=== PATIENT | male | born 1960 | race Caucasian/White ===

== ENCOUNTER → 2017-06-26 | Outpatient (CLI) | payer OTHER ==
[2017-06-26 13:29] LABS: HEMOGLOBIN A1C 6.1 % (4.5-5.6)
[2017-06-26 14:17] LABS: ALT/SGPT 35 U/L (12-78); AST/SGOT 18 U/L (15-37); BLOOD UREA NITROGEN 14 mg/dl (7-18); CALCIUM 9.6 mg/dl (8.5-10.1); CARBON DIOXIDE 25 mmol/L (21-32); CREATININE 0.75 mg/dl (0.60-1.40); GLUCOSE 104 mg/dl (70-99); POTASSIUM 4.2 mmol/L (3.5-5.1); SODIUM 137 mmol/L (136-145)
[2017-06-26 14:27] LABS: CHOLESTEROL 152 mg/dl (0-200); LDL CHOLESTEROL (DIRECT) 88 mg/dl
[2017-06-29 02:26] LABS: ANA SCREEN TC 249X POSITIVE (NEGATIVE); ANTI-SS-A <1.0 NEG AI (<1.0 NEG); ANTI-SS-B <1.0 NEG AI (<1.0 NEG); ANTICARDIOLIPID AB IGA <11 APL (< = 11); COMPLEMENT C3 TC 44859W 154 MG/DL (90-180); COMPLEMENT C4 TC 44982E 22 MG/DL (16-47); MICROSOMAL AB <1 IU/ML (<9)
== END | disposition home or self-care (01) ==
LOC: C.LABMFLN 10:53
PROVIDERS: ATTEND Family Medicine
DX: Z00.00 Encounter for general adult medical examination without abnormal findings (principal); I10 Essential (primary) hypertension; E78.01 Familial hypercholesterolemia; I25.10 Atherosclerotic heart disease of native coronary artery without angina pectoris; E78.5 Hyperlipidemia, unspecified; R76.8 Other specified abnormal immunological findings in serum; G62.9 Polyneuropathy, unspecified; R53.83 Other fatigue; R35.8 Other polyuria

== ENCOUNTER → 2017-07-20 | Outpatient (CLI) | payer OTHER | END | disposition home or self-care (01) | LOC: C.LABMFLN 08:54 | PROVIDERS: ATTEND Internal Medicine Rheumatology | DX: G62.9 Polyneuropathy, unspecified (principal); R76.8 Other specified abnormal immunological findings in serum; M35.1 Other overlap syndromes ==

== ENCOUNTER 2017-08-19 19:09 | Emergency (ER) | payer OTHER ==
[~2017-08-19] VITALS: Ht 182.9 cm; Wt 119.7 kg
[2017-08-19 19:13] VITALS: TEMP 36.5; Ht 182.9 cm; Wt 119.7 kg
[2017-08-19] MEDS ORDERED: SODIUM CHLORIDE 0.9% 1000ML 1,000 ML IV STA (19:17)
[2017-08-19] MEDS ORDERED: HYDROmorphone INJ 1 MG/ML SYR IV STA ×5 (19:17→23:58)
[2017-08-19 19:18] VITALS: O2SAT 96
[2017-08-19 19:30] LABS: BASO % 0.1 %; BASO ABS # 0.01 K/uL (0-0.2); EOS % 0.8 %; EOS ABS # 0.08 K/uL (0-0.5); HEMATOCRIT 41.8 % (42-52); HEMOGLOBIN 14.5 g/dL (14.0-18.0); IG# 0.03 K/uL (0.00-0.02); LYMPH % 14.5 %; MEAN CELL VOLUME 85.7 fL (80-100); MEAN CORPUSCULAR HEMOGLOBIN 29.7 pg (25-34); MEAN CORPUSCULAR HGB CONC 34.7 g/dl (32-36); MEAN PLATELET VOLUME 9.4 fL (7.4-10.4); MONO % 7.9 %; MONO ABS # 0.82 K/uL (0.11-0.59); NEUT % 76.4 %; NEUT ABS # 7.88 K/uL (1.4-6.5); PLATELET COUNT 223 K/uL (130-400); RED CELL DISTRIBUTION WIDTH CV 14.8 % (11.5-14.5); RED CELL DISTRIBUTION WIDTH SD 46.3 fL (36.4-46.3); WHITE BLOOD COUNT 10.32 K/uL (4.8-10.8)
[2017-08-19 19:40] LABS: INR 0.9 (0.9-1.1)
[2017-08-19 19:48] LABS: ALBUMIN 3.7 gm/dl (3.4-5.0); CALCIUM 8.6 mg/dl (8.5-10.1); CREATININE 0.78 mg/dl (0.60-1.40)
[2017-08-19 19:50] LABS: TOTAL PROTEIN 7.2 gm/dl (6.4-8.2)
[2017-08-19] MEDS ORDERED: SULF-302 PO (20:04)
[2017-08-19] MEDS ORDERED: PRD/25 PO (20:04)
[2017-08-19] MEDS ORDERED: LANS15CA24 PO (20:04)
[2017-08-19] MEDS ORDERED: FOLI1TAB8 PO (20:04)
[2017-08-19] MEDS ORDERED: METH2.5T PO (20:04)
[2017-08-19] MEDS ORDERED: TPRSR25 PO (20:04)
[2017-08-19] MEDS ORDERED: ATOR10TA82 PO (20:04)
--- NOTE | 2017-08-19 20:31 | DIAGNOSTIC IMAGING REPORT ---
ABD/PELVIS WITHOUT FOR STONE HISTORY: 57 years-old Male R flank pain acute right-sided flank pain COMPARISON: None available TECHNIQUE: Multiple axial CT images of the abdomen and pelvis were obtained without the use of IV contrast. A dose lowering technique was used consistent with the principals of RENETTA. FINDINGS: Mild subsegmental bibasilar atelectasis. No pneumatosis or pneumoperitoneum identified. Imaged inferior cardiac chambers are mildly enlarged. Coronary arterial calcifications noted. Evaluation of the solid abdominal organs is limited without the use of IV contrast. Liver, pancreas and adrenal glands are within normal limits. Gallbladder is mildly contracted. Spleen is mildly enlarged, 14 cm. Mild nonspecific bilateral perinephric stranding. No renal calculi or obstructive uropathy. Ureters and bladder are unremarkable. Prostate is mildly enlarged. Small fat filled bilateral inguinal hernias. Moderate atherosclerosis of the aorta without aneurysm. Retroaortic left renal vein. No bulky adenopathy. There is no bowel obstruction or focal bowel wall thickening identified. Mild colonic diverticulosis without diverticulitis. Postoperative changes from prior ventral abdominal wall herniorrhaphy with mild diastases recti. There is thinning of the abdominal wall musculature. The appendix is not seen and may be surgically absent. No mesenteric inflammatory changes or ascites. Bones appear intact. Prior right-sided hemilaminectomy at L4 and L5. Moderate intervertebral disc space narrowing at the L4-L5 and L5-S1 levels. IMPRESSION: 1. No acute intra-abdominal or intrapelvic abnormality identified, specifically no renal calculi or obstructive uropathy. 2. Mild colonic diverticulosis without diverticulitis. 3. Splenomegaly. 4. Prior ventral abdominal wall herniorrhaphy with diastases recti. 5. Additional findings as above. The above report was generated using voice recognition software. It may contain grammatical, syntax or spelling errors. Electronically signed by: Stuart Warner M.D. 08/19/2017 8:30 PM Dictated Date/Time: 08/19/2017 8:23 PM
[2017-08-19] MEDS ORDERED: OPTIRAY 320 IV PRN (20:45)
[2017-08-19] MEDS ORDERED: ONDANSETRON INJ 2 MG/ML 2 ML VIAL IV STA (20:48)
[2017-08-19 21:02] LABS: CKMB 7.6 ng/ml (0.5-3.6)
--- NOTE | 2017-08-19 21:14 | EMERGENCY ROOM VISIT NOTE ---
History First contact with patient: 19:09 Chief Complaint: FLANK PAIN Stated Complaint: RIGHT FLANK PAIN History of Present Illness The patient is a 57 year old male who presents to the Emergency Room via ambulance with complaints of "right flank pain". The patient states that he was recently diagnosed vasculitis and has been on high-dose steroids. This morning he woke up with excruciating and sudden onset right flank pain rated as a 10/10 and described as someone squeezing his right kidney. He points to the inferior right flank as a location of pain. There is been no trauma or injury. No chest pain or shortness of breath. No history of kidney stone. He notes that in route he received 200 mcg of fentanyl, and 4 mg of Zofran. This was with minimal relief. Review of Systems A complete 10-point Review of Systems was discussed with the patient, with pertinent positives and negatives listed in the History of Present Illness. All remaining Review of Systems questions can be considered negative unless otherwise specified. Past Medical/Surgical History Vasculitis Family History No pertinent. Social History Smoking Status: Former Smoker Patient lives locally. Current/Historical Medications Scheduled Atorvastatin (Lipitor), 10 MG PO DAILY Folic Acid (Folvite), 1 MG PO DAILY Lansoprazole (Prevacid 24HR), 15 MG PO DAILY Methotrexate (Methotrexate), 2.5 MG PO WK Metoprolol Succinate (Metoprolol Succinate ER), 12.5 MG PO DAILY Prednisone (Prednisone), 2.5 MG PO TID Sulfamethoxazole-Trimethoprim (Smz-Tmp Ds), 1 TAB PO QAM Physical Exam Vital Signs Date Time Temp Pulse Resp B/P (MAP) Pulse Ox O2 Delivery O2 Flow Rate FiO2 08/19/17 22:47 57 16 118/63 94 Nasal Cannula 08/19/17 21:11 56 16 112/69 98 Nasal Cannula 2.0 08/19/17 20:21 53 16 104/68 97 Room Air 08/19/17 19:18 96 Room Air 08/19/17 19:15 70 08/19/17 19:13 36.5 74 18 137/74 96 Room Air Physical Exam VITAL SIGNS - Vital signs and nursing notes were reviewed. Stable. GENERAL -57-year-old male appearing his stated age who is in no acute distress but does appear to be in pain. Communicates well with provider and answers questions appropriately. SKIN - Without rashes. No meningeal or petechial rash. HEAD - NC/AT. EYES - PERRL with EOMI bilaterally. Sclera anicteric. EARS - No deformities of external structures noted on gross examination bilaterally. External auditory canals without discharge or otorrhea. Tympanic membranes pearly pike without retraction or bulging. No fluid or purulent material visualized behind the TM. Handle of malleus, umbo, cone of light, pars tensa/flaccid all easily visualized. NOSE - Midline and without cyanosis. No epistaxis or purulent drainage noted. MOUTH/OROPHARYNX - Without perioral cyanosis. Buccal mucosa pink and moist and without leukoplakia. Tongue midline with equal elevation of palate bilaterally. No tonsillar hypertrophy, erythema, or exudates noted. There dentition noted. NECK - Neck with FROM. Supple to palpation. No lymphadenopathy noted. No nuchal rigidity. LUNGS - Chest wall symmetric without accessory muscle use, intercostals retractions, or central cyanosis. Normal vesicular breath sounds CTA B/L. No wheezes, rales, or rhonchi appreciated. CARDIAC - RRR with S1/S2. No murmur, rubs, or gallops appreciated. ABDOMEN - Abdominal contour normal without pulsations or visible masses. BS normoactive all four quadrants. No tenderness, palpable masses, hepatosplenomegaly, or ascites noted. No CVA tenderness. EXTREMITIES - No clubbing or peripheral cyanosis. No pretibial edema present. + 5/5 strength noted in UE/LE bilaterally. NEUROLOGIC - Cranial nerves II through XII grossly intact. Sensory intact to light touch throughout. PSYCH - A&O, and cooperates fully with examiner. Pt is very pleasant and interacts well with examiner. Medical Decision & Procedures ER Provider Diagnostic Interpretation: ABD/PELVIS WITHOUT FOR STONE HISTORY: 57 years-old Male R flank pain acute right-sided flank pain COMPARISON: None available TECHNIQUE: Multiple axial CT images of the abdomen and pelvis were obtained without the use of IV contrast. A dose lowering technique was used consistent with the principals of RENETTA. FINDINGS: Mild subsegmental bibasilar atelectasis. No pneumatosis or pneumoperitoneum identified. Imaged inferior cardiac chambers are mildly enlarged. Coronary arterial calcifications noted. Evaluation of the solid abdominal organs is limited without the use of IV contrast. Liver, pancreas and adrenal glands are within normal limits. Gallbladder is mildly contracted. Spleen is mildly enlarged, 14 cm. Mild nonspecific bilateral perinephric stranding. No renal calculi or obstructive uropathy. Ureters and bladder are unremarkable. Prostate is mildly enlarged. Small fat filled bilateral inguinal hernias. Moderate atherosclerosis of the aorta without aneurysm. Retroaortic left renal vein. No bulky adenopathy. There is no bowel obstruction or focal bowel wall thickening identified. Mild colonic diverticulosis without diverticulitis. Postoperative changes from prior ventral abdominal wall herniorrhaphy with mild diastases recti. There is thinning of the abdominal wall musculature. The appendix is not seen and may be surgically absent. No mesenteric inflammatory changes or ascites. Bones appear intact. Prior right-sided hemilaminectomy at L4 and L5. Moderate intervertebral disc space narrowing at the L4-L5 and L5-S1 levels. IMPRESSION: 1. No acute intra-abdominal or intrapelvic abnormality identified, specifically no renal calculi or obstructive uropathy. 2. Mild colonic diverticulosis without diverticulitis. 3. Splenomegaly. 4. Prior ventral abdominal wall herniorrhaphy with diastases recti. 5. Additional findings as above. The above report was generated using voice recognition software. It may contain grammatical, syntax or spelling errors. Electronically signed by: Stuart Warner M.D. 08/19/2017 8:30 PM Dictated Date/Time: 08/19/2017 8:23 PM [~ rep ct add3]] ANGIO ABD/PELVIS WITH CONTRAST CLINICAL HISTORY: 57 years-old Male presents with acute right flank and abdominal pain. Concern for vascular etiology. COMPARISON STUDY: CT abdomen and pelvis of same day without contrast TECHNIQUE: Following the IV administration of 110 cc of Optiray 320, CT angiogram of the abdomen and pelvis was performed from the lung bases the proximal femora. Images are reviewed in the axial, sagittal, and coronal planes. 3-D MIPS images are created and assessed. Oh measurements were obtained according to NASCET criteria. IV contrast was administered without complication. A dose lowering technique was utilized adhering to the principles of ALARA. CT DOSE: 1620.60 mGy.cm FINDINGS: CTA: Imaged inferior cardiac chambers are mildly enlarged. Coronary arterial calcifications noted. The imaged opacified pulmonary arteries appear unremarkable. Abdominal aorta is normal in course and caliber with moderate mixed plaquing. No aneurysm or dissection. Moderate mixed atheromatous and atherosclerotic plaquing extends into the iliac and imaged femoral arteries which are widely patent. CT ABDOMEN/PELVIS: Mild subsegmental bibasilar atelectasis. No pneumatosis or pneumoperitoneum identified. The celiac trunk, superior and inferior mesenteric arteries are widely patent. Bilateral renal arteries are also widely patent. Accessory renal artery of the superior pole left kidney. No dissection, high-grade stenosis or proximal branch occlusion identified. Liver, pancreas and adrenal glands are within normal limits. Gallbladder is mildly contracted. Spleen is mildly enlarged, 14 cm. Mild nonspecific bilateral perinephric stranding. No renal calculi or obstructive uropathy. Ureters and bladder are unremarkable. Prostate is mildly enlarged. Small fat filled bilateral inguinal hernias. Moderate atherosclerosis of the aorta without aneurysm. Retroaortic left renal vein. No bulky adenopathy. There is no bowel obstruction or focal bowel wall thickening identified. Mild colonic diverticulosis without diverticulitis. Postoperative changes from prior ventral abdominal wall herniorrhaphy with mild diastases recti. There is thinning of the abdominal wall musculature. The appendix is not seen and may be surgically absent. No mesenteric inflammatory changes or ascites. Bones appear intact. Prior right-sided hemilaminectomy at L4 and L5. Moderate intervertebral disc space narrowing at the L4-L5 and L5-S1 levels. IMPRESSION: 1. Moderate mixed atheromatous and atherosclerotic plaquing of the aorta, iliac and femoral arteries without high-grade stenosis, proximal branch occlusion, aneurysm or dissection. Mesenteric vessels are widely patent. 2. Mild colonic diverticulosis without diverticulitis. 3. Splenomegaly. 4. Additional findings as above. The above report was generated using voice recognition software. It may contain grammatical, syntax or spelling errors. Electronically signed by: Stuart Warner M.D. 08/19/2017 10:43 PM Dictated Date/Time: 08/19/2017 10:31 PM Laboratory Results 08/19/17 19:15 Red Blood Count 4.88, Mean Corpuscular Volume 85.7, Mean Corpuscular Hemoglobin 29.7, Mean Corpuscular Hemoglobin Concent 34.7, Mean Platelet Volume 9.4, Neutrophils (%) (Auto) 76.4, Lymphocytes (%) (Auto) 14.5, Monocytes (%) (Auto) 7.9, Eosinophils (%) (Auto) 0.8, Basophils (%) (Auto) 0.1, Neutrophils # (Auto) 7.88, Lymphocytes # (Auto) 1.50, Monocytes # (Auto) 0.82, Eosinophils # (Auto) 0.08, Basophils # (Auto) 0.01 08/19/17 19:15 Test 08/19/17 19:15 08/19/17 21:00 White Blood Count 10.32 K/uL (4.8-10.8) Red Blood Count 4.88 M/uL (4.7-6.1) Hemoglobin 14.5 g/dL (14.0-18.0) Hematocrit 41.8 % (42-52) Mean Corpuscular Volume 85.7 fL (80-100) Mean Corpuscular Hemoglobin 29.7 pg (25-34) Mean Corpuscular Hemoglobin Concent 34.7 g/dl (32-36) Platelet Count 223 K/uL (130-400) Mean Platelet Volume 9.4 fL (7.4-10.4) Neutrophils (%) (Auto) 76.4 % Lymphocytes (%) (Auto) 14.5 % Monocytes (%) (Auto) 7.9 % Eosinophils (%) (Auto) 0.8 % Basophils (%) (Auto) 0.1 % Neutrophils # (Auto) 7.88 K/uL (1.4-6.5) Lymphocytes # (Auto) 1.50 K/uL (1.2-3.4) Monocytes # (Auto) 0.82 K/uL (0.11-0.59) Eosinophils # (Auto) 0.08 K/uL (0-0.5) Basophils # (Auto) 0.01 K/uL (0-0.2) RDW Standard Deviation 46.3 fL (36.4-46.3) RDW Coefficient of Variation 14.8 % (11.5-14.5) Immature Granulocyte % (Auto) 0.3 % Immature Granulocyte # (Auto) 0.03 K/uL (0.00-0.02) Erythrocyte Sedimentation Rate 11 mm/hr (0-14) Prothrombin Time 9.8 SECONDS (9.0-12.0) Prothromb Time International Ratio 0.9 (0.9-1.1) Activated Partial Thromboplast Time 23.0 SECONDS (21.0-31.0) Partial Thromboplastin Ratio 0.9 Anion Gap 4.0 mmol/L (3-11) Est Creatinine Clear Calc Drug Dose 143.0 ml/min Estimated GFR () 117.8 Estimated GFR (Non- 101.6 BUN/Creatinine Ratio 21.2 (10-20) Calcium Level 8.6 mg/dl (8.5-10.1) Magnesium Level 2.3 mg/dl (1.8-2.4) Total Bilirubin 1.0 mg/dl (0.2-1) Aspartate Amino Transf (AST/SGOT) 24 U/L (15-37) Alanine Aminotransferase (ALT/SGPT) 43 U/L (12-78) Alkaline Phosphatase 79 U/L (45-117) Total Creatine Kinase 181 U/L (39-308) Creatine Kinase MB 7.6 ng/ml (0.5-3.6) Creatine Kinase MB Ratio 4.2 (0-3.0) Troponin I < 0.015 ng/ml (0-0.045) C-Reactive Protein < 0.29 mg/dl (0-0.29) Total Protein 7.2 gm/dl (6.4-8.2) Albumin 3.7 gm/dl (3.4-5.0) Globulin 3.5 gm/dl (2.5-4.0) Albumin/Globulin Ratio 1.1 (0.9-2) Urine Color YELLOW Urine Appearance CLEAR (CLEAR) Urine pH 5.5 (4.5-7.5) Urine Specific [place] 1.022 (1.000-1.030) Urine Protein NEG (NEG) Urine Glucose (UA) NEG (NEG) Urine Ketones NEG (NEG) Urine Occult Blood NEG (NEG) Urine Nitrite NEG (NEG) Urine Bilirubin NEG (NEG) Urine Urobilinogen NEG (NEG) Urine Leukocyte Esterase NEG (NEG) Medications Administered Medications (Trade) Dose Ordered Sig/Bc Route Start Time Stop Time Status Last Admin Dose Admin Sodium Chloride 1,000 ml @ 999 mls/hr Q1H1M STAT IV 08/19/17 19:17 08/19/17 20:17 DC 08/19/17 19:22 999 MLS/HR Hydromorphone HCl (Dilaudid Inj) 1 mg NOW STAT IV 08/19/17 19:17 08/19/17 19:19 DC 08/19/17 19:38 1 MG Hydromorphone HCl (Dilaudid Inj) 1 mg NOW STAT IV 08/19/17 20:24 08/19/17 20:25 DC 08/19/17 20:30 1 MG Ondansetron HCl (Zofran Inj) 4 mg NOW STAT IV 08/19/17 20:48 08/19/17 20:50 DC 08/19/17 21:10 4 MG Hydromorphone HCl (Dilaudid Inj) 1 mg NOW STAT IV 08/19/17 20:48 08/19/17 20:50 DC 08/19/17 21:10 1 MG Hydromorphone HCl (Dilaudid Inj) 1 mg NOW STAT IV 08/19/17 22:22 08/19/17 22:24 DC 08/19/17 22:47 1 MG Metoclopramide HCl (Reglan Inj) 10 mg NOW STAT IV 08/19/17 22:22 08/19/17 22:24 DC 08/19/17 22:46 10 MG Medical Decision Patient was seen and evaluated as above in room B5. Review was performed of nursing notes and vital signs. After obtaining a thorough history and physical examination the above work up was performed. He presents to us today via ambulance with exquisite right-sided flank pain not reproduced on exam. He is on high-dose steroids for his recent diagnosis of vasculitis. In route he did receive a large amount of fentanyl with persistence of his pain. No other complaints were elicited from the patient. He did receive a CT scan of the abdomen and pelvis without for stone. This was negative for stone. Because the patient's persistent of pain despite 2 mg of Dilaudid IV here in the emergency department I did elect to obtain a CTA of his abdomen and pelvis to evaluate for any potential vascular occlusion that was not identified previously. CTA does not reveal any emergent process. CBC reveals no concerning leukocytosis or anemia. ESR is negative. Coags negative. EKG reveals sinus bradycardia, no evidence of TX or PE. Kidney function is excellent. No liver abnormality. CK-MB is elevated. CRP negative. Troponin negative. Urine negative. He has received large amounts of Dilaudid here as well as pain meds prior to coming here. I do not suspect drug-seeking behavior. The concern is that with his underlying past medical history there could be other causes of this which should be further evaluated. I did discuss the case with the attending physician and subsequently the hospitalist. Please refer to for the documentation regarding his stay. In the evaluation and treatment of this patient the following differential diagnoses were entertained: TX, PE, renal artery stenosis, organ failure, vasculitis, diverticulitis, lumbar strain, fracture, dislocation, appendicitis, among others. Impression Primary Impression: Right flank pain Additional Impression: Intractable pain Departure Information Dispostion Admitted as an inpatient Condition FAIR Referrals Doyle Siegel M.D. (PCP) Patient Instructions [facility] Problem Qualifiers
--- NOTE | 2017-08-19 21:15 | EMERGENCY ROOM VISIT NOTE ---
ED Visit Note First contact with patient: 19:09 I have seen and examined this patient with Natalio Celis and generally agree with the treatment plan as discussed. Current/Historical Medications Scheduled Atorvastatin (Lipitor), 10 MG PO DAILY Folic Acid (Folvite), 1 MG PO DAILY Lansoprazole (Prevacid 24HR), 15 MG PO DAILY Methotrexate (Methotrexate), 2.5 MG PO WK Metoprolol Succinate (Metoprolol Succinate ER), 12.5 MG PO DAILY Prednisone (Prednisone), 2.5 MG PO TID Sulfamethoxazole-Trimethoprim (Smz-Tmp Ds), 1 TAB PO QAM Allergies Coded Allergies: Penicillins (Verified Allergy, Severe, ANAPHYLAXIS, 08/19/17) Morphine (Verified Allergy, Intermediate, Hives, swelling, 08/19/17) Vital Signs Date Time Temp Pulse Resp B/P (MAP) Pulse Ox O2 Delivery O2 Flow Rate FiO2 08/19/17 21:11 56 16 112/69 98 Nasal Cannula 2.0 08/19/17 20:21 53 16 104/68 97 Room Air 08/19/17 19:18 96 Room Air 08/19/17 19:15 70 08/19/17 19:13 36.5 74 18 137/74 96 Room Air Laboratory Results 08/19/17 19:15 Red Blood Count 4.88, Mean Corpuscular Volume 85.7, Mean Corpuscular Hemoglobin 29.7, Mean Corpuscular Hemoglobin Concent 34.7, Mean Platelet Volume 9.4, Neutrophils (%) (Auto) 76.4, Lymphocytes (%) (Auto) 14.5, Monocytes (%) (Auto) 7.9, Eosinophils (%) (Auto) 0.8, Basophils (%) (Auto) 0.1, Neutrophils # (Auto) 7.88, Lymphocytes # (Auto) 1.50, Monocytes # (Auto) 0.82, Eosinophils # (Auto) 0.08, Basophils # (Auto) 0.01 08/19/17 19:15 Test 08/19/17 19:15 08/19/17 20:30 White Blood Count 10.32 K/uL (4.8-10.8) Red Blood Count 4.88 M/uL (4.7-6.1) Hemoglobin 14.5 g/dL (14.0-18.0) Hematocrit 41.8 % (42-52) Mean Corpuscular Volume 85.7 fL (80-100) Mean Corpuscular Hemoglobin 29.7 pg (25-34) Mean Corpuscular Hemoglobin Concent 34.7 g/dl (32-36) Platelet Count 223 K/uL (130-400) Mean Platelet Volume 9.4 fL (7.4-10.4) Neutrophils (%) (Auto) 76.4 % Lymphocytes (%) (Auto) 14.5 % Monocytes (%) (Auto) 7.9 % Eosinophils (%) (Auto) 0.8 % Basophils (%) (Auto) 0.1 % Neutrophils # (Auto) 7.88 K/uL (1.4-6.5) Lymphocytes # (Auto) 1.50 K/uL (1.2-3.4) Monocytes # (Auto) 0.82 K/uL (0.11-0.59) Eosinophils # (Auto) 0.08 K/uL (0-0.5) Basophils # (Auto) 0.01 K/uL (0-0.2) RDW Standard Deviation 46.3 fL (36.4-46.3) RDW Coefficient of Variation 14.8 % (11.5-14.5) Immature Granulocyte % (Auto) 0.3 % Immature Granulocyte # (Auto) 0.03 K/uL (0.00-0.02) Prothrombin Time 9.8 SECONDS (9.0-12.0) Prothromb Time International Ratio 0.9 (0.9-1.1) Activated Partial Thromboplast Time 23.0 SECONDS (21.0-31.0) Partial Thromboplastin Ratio 0.9 Anion Gap 4.0 mmol/L (3-11) Est Creatinine Clear Calc Drug Dose 143.0 ml/min Estimated GFR () 117.8 Estimated GFR (Non- 101.6 BUN/Creatinine Ratio 21.2 (10-20) Calcium Level 8.6 mg/dl (8.5-10.1) Magnesium Level 2.3 mg/dl (1.8-2.4) Total Bilirubin 1.0 mg/dl (0.2-1) Aspartate Amino Transf (AST/SGOT) 24 U/L (15-37) Alanine Aminotransferase (ALT/SGPT) 43 U/L (12-78) Alkaline Phosphatase 79 U/L (45-117) Total Creatine Kinase 181 U/L (39-308) Creatine Kinase MB 7.6 ng/ml (0.5-3.6) Creatine Kinase MB Ratio 4.2 (0-3.0) Troponin I < 0.015 ng/ml (0-0.045) Total Protein 7.2 gm/dl (6.4-8.2) Albumin 3.7 gm/dl (3.4-5.0) Globulin 3.5 gm/dl (2.5-4.0) Albumin/Globulin Ratio 1.1 (0.9-2) Medications Administered Medications (Trade) Dose Ordered Sig/Bc Route Start Time Stop Time Status Last Admin Dose Admin Sodium Chloride 1,000 ml @ 999 mls/hr Q1H1M STAT IV 08/19/17 19:17 08/19/17 20:17 DC 08/19/17 19:22 999 MLS/HR Hydromorphone HCl (Dilaudid Inj) 1 mg NOW STAT IV 08/19/17 19:17 08/19/17 19:19 DC 08/19/17 19:38 1 MG Hydromorphone HCl (Dilaudid Inj) 1 mg NOW STAT IV 08/19/17 20:24 08/19/17 20:25 DC 08/19/17 20:30 1 MG Ondansetron HCl (Zofran Inj) 4 mg NOW STAT IV 08/19/17 20:48 08/19/17 20:50 DC 08/19/17 21:10 4 MG Hydromorphone HCl (Dilaudid Inj) 1 mg NOW STAT IV 08/19/17 20:48 08/19/17 20:50 DC 08/19/17 21:10 1 MG Departure Information Impression Primary Impression: Right flank pain Referrals Dolye Siegel M.D. (PCP) Patient Instructions [facility]
[2017-08-19] MEDS ORDERED: METOCLOPRAMIDE HCL INJ 5 MG/ML 2 ML VIAL IV STA (22:22)
--- NOTE | 2017-08-19 22:44 | DIAGNOSTIC IMAGING REPORT ---
ANGIO ABD/PELVIS WITH CONTRAST CLINICAL HISTORY: 57 years-old Male presents with acute right flank and abdominal pain. Concern for vascular etiology. COMPARISON STUDY: CT abdomen and pelvis of same day without contrast TECHNIQUE: Following the IV administration of 110 cc of Optiray 320, CT angiogram of the abdomen and pelvis was performed from the lung bases the proximal femora. Images are reviewed in the axial, sagittal, and coronal planes. 3-D MIPS images are created and assessed. Oh measurements were obtained according to NASCET criteria. IV contrast was administered without complication. A dose lowering technique was utilized adhering to the principles of ALARA. CT DOSE: 1620.60 mGy.cm FINDINGS: CTA: Imaged inferior cardiac chambers are mildly enlarged. Coronary arterial calcifications noted. The imaged opacified pulmonary arteries appear unremarkable. Abdominal aorta is normal in course and caliber with moderate mixed plaquing. No aneurysm or dissection. Moderate mixed atheromatous and atherosclerotic plaquing extends into the iliac and imaged femoral arteries which are widely patent. CT ABDOMEN/PELVIS: Mild subsegmental bibasilar atelectasis. No pneumatosis or pneumoperitoneum identified. The celiac trunk, superior and inferior mesenteric arteries are widely patent. Bilateral renal arteries are also widely patent. Accessory renal artery of the superior pole left kidney. No dissection, high-grade stenosis or proximal branch occlusion identified. Liver, pancreas and adrenal glands are within normal limits. Gallbladder is mildly contracted. Spleen is mildly enlarged, 14 cm. Mild nonspecific bilateral perinephric stranding. No renal calculi or obstructive uropathy. Ureters and bladder are unremarkable. Prostate is mildly enlarged. Small fat filled bilateral inguinal hernias. Moderate atherosclerosis of the aorta without aneurysm. Retroaortic left renal vein. No bulky adenopathy. There is no bowel obstruction or focal bowel wall thickening identified. Mild colonic diverticulosis without diverticulitis. Postoperative changes from prior ventral abdominal wall herniorrhaphy with mild diastases recti. There is thinning of the abdominal wall musculature. The appendix is not seen and may be surgically absent. No mesenteric inflammatory changes or ascites. Bones appear intact. Prior right-sided hemilaminectomy at L4 and L5. Moderate intervertebral disc space narrowing at the L4-L5 and L5-S1 levels. IMPRESSION: 1. Moderate mixed atheromatous and atherosclerotic plaquing of the aorta, iliac and femoral arteries without high-grade stenosis, proximal branch occlusion, aneurysm or dissection. Mesenteric vessels are widely patent. 2. Mild colonic diverticulosis without diverticulitis. 3. Splenomegaly. 4. Additional findings as above. The above report was generated using voice recognition software. It may contain grammatical, syntax or spelling errors. Electronically signed by: Stuart Warner M.D. 08/19/2017 10:43 PM Dictated Date/Time: 08/19/2017 10:31 PM
[2017-08-20] MEDS ORDERED: HYDROmorphone INJ 0.5 MG/0.5 ML SYR IV PRN (01:15)
[2017-08-20] MEDS ORDERED: ONDA4TAB10 SL (01:43)
[2017-08-20] MEDS ORDERED: DOCU-94 PO (01:43)
[2017-08-20] MEDS ORDERED: OXYC-106 PO (01:43)
--- NOTE | 2017-08-20 01:48 | Discharge Instructions ---
Discharge Instructions Date of Service August 20, 2017. Admission Reason for Admission: Right Flank Pain Discharge Discharge Diagnosis / Problem: Flank Pain Discharge Goals Goal(s): Decrease discomfort Activity Recommendations Activity Limitations: resume your previous activity . Instructions / Follow-Up Instructions / Follow-Up Please followup with your primary care physician in 2-3 days. Please return to the ER if you experience chest pain, shortness of breath, fevers, chills, weakness, blood in urine or any new or concerning symptoms. Current Hospital Diet Patient's current hospital diet: AHA Diet (Heart Healthy) Discharge Diet Recommended Diet: Regular Diet Pending Studies Studies pending at discharge: no Laboratory Results Hemoglobin A1c Test 06/26/17 10:56 Range/Units Estimated Average Glucose 128 mg/dl Hemoglobin A1c 6.1 H 4.5-5.6 % Lipid Panel Test 06/26/17 10:56 Range/Units Triglycerides Level 332 H 0-150 mg/dl Cholesterol Level 152 0-200 mg/dl HDL Cholesterol 30 mg/dl LDL Cholesterol Direct 88 mg/dl Cholesterol/HDL Ratio 5.1 LDL Cholesterol, Calculated mg/dl Medical Emergencies . Who to Call and When: Medical Emergencies: If at any time you feel your situation is an emergency, please call 911 immediately. . Non-Emergent Contact Non-Emergency issues call your: Primary Care Provider Call Non-Emergent contact if: you have a fever, your pain is not controlled, your pain is worsening . . "Provider Documentation" section prepared by Damari Vences. .
[2017-08-20] MEDS ORDERED: PERCOCET HOME PACK PO STA (01:59)
--- NOTE | 2017-08-20 02:06 | Progress Note ---
Progress Note Date of Service August 20, 2017. Progress Note Patient seen and examined, chart reviewed, case discussed with Dr. Perez and I agree with his assessment and plan as documented above. Alexia, patient is a 57yo C male recently diagnosed with vasculitis presenting with acute right flank pain requiring multiple doses of IV Dilaudid. On exam patient is afebrile , hemodynamically stable, nontoxic in appearance but appears uncomfortable. HEENT exam is unremarkable, Heart +S1/S2, regular, no m/r/g, Lungs CTA, abdomen with well healed surgical scars, abdominal hernia with no evidence of strangulation, soft, NT/ND with normoactive bowel sounds, +CVA tenderness on the right. Extremities without edema. Neurologically intact. Labs and images reviewed and significant for elevated CK. UA clear. Imaging with no acute findings. Assessment: 57yo male recently diagnosed with vasculitis presenting with severe right sided flank pain. Patient requiring multiple doses of IV pain medication. He is afebrile, hemodynamically stable, nontoxic in appearance. Labs and images relatively unremarkable. Patient does not wish to stay in the hospital at this time secondary to insurance concerns. He is able to schedule an appointment with his PCP on Monday. He is aware to return to the ER or PCP if his symptoms progress or persist or if he experiences fever, chest pain, shortness of breath, problems with urination. Plan - patient to be discharged home. -Percocet 10/325 1 po q 4 hours as needed for pain, dispense #20 -Colace 100mg po BID - Zofran 4mg SL q 6 hours as needed for nausea
[2017-08-20 02:14] VITALS: BP 115/72; PULSE 64; O2SAT 96
[2017-08-20] MEDS ORDERED: IV FLUIDS COMPLETED PRN (02:45)
[2017-08-20] MEDS ORDERED: METHOTREXATE 2.5 MG TAB PO SCH (09:00)
[2017-08-20] MEDS ORDERED: ATORVASTATIN 10 MG TAB PO SCH (09:00)
[2017-08-20] MEDS ORDERED: METOPROLOL SUCC 25MG EXT REL TAB PO SCH (09:00)
[2017-08-20] MEDS ORDERED: PANTOprazole INJ 40 MG in SYRINGE 0 ML IV SCH (11:00)
== END 2017-08-20 02:15 | disposition home or self-care (01) ==
LOC: C.EDB 19:09 → CANBEDREQ 08-20 01:30 → C.EDB 08-20 02:15
DX: R10.9 Unspecified abdominal pain (principal); I77.6 Arteritis, unspecified; Z87.891 Personal history of nicotine dependence

== ENCOUNTER → 2017-08-30 | Outpatient (CLI) | payer OTHER ==
[~2017-08-30] MED LIST: ATOR10TA82 PO; DOCU-94 PO; FOLI1TAB8 PO; LANS15CA24 PO; METH2.5T PO; ONDA4TAB10 SL; OXYC-106 PO; PRD/25 PO; SULF-302 PO; TPRSR25 PO
[2017-08-30 13:08] LABS: BASO % 0.2 %; BASO ABS # 0.02 K/uL (0-0.2); EOS % 2.5 %; EOS ABS # 0.24 K/uL (0-0.5); HEMATOCRIT 42.8 % (42-52); HEMOGLOBIN 14.3 g/dL (14.0-18.0); IG# 0.03 K/uL (0.00-0.02); LYMPH % 24.9 %; LYMPH ABS # 2.39 K/uL (1.2-3.4); MEAN CELL VOLUME 88.6 fL (80-100); MEAN CORPUSCULAR HEMOGLOBIN 29.6 pg (25-34); MEAN CORPUSCULAR HGB CONC 33.4 g/dl (32-36); MEAN PLATELET VOLUME 10.1 fL (7.4-10.4); MONO % 7.3 %; NEUT % 64.8 %; NEUT ABS # 6.22 K/uL (1.4-6.5); PLATELET COUNT 209 K/uL (130-400); RED CELL DISTRIBUTION WIDTH CV 15.7 % (11.5-14.5); RED CELL DISTRIBUTION WIDTH SD 50.3 fL (36.4-46.3)
[2017-08-30 13:37] LABS: ALBUMIN 3.4 gm/dl (3.4-5.0); ALKALINE PHOSPHATASE 63 U/L (45-117); ALT/SGPT 40 U/L (12-78); AST/SGOT 20 U/L (15-37); CREATININE 0.86 mg/dl (0.60-1.40); TOTAL PROTEIN 6.8 gm/dl (6.4-8.2)
== END | disposition home or self-care (01) ==
LOC: C.LABMFLN 08:46
PROVIDERS: ATTEND Internal Medicine Rheumatology
DX: G62.9 Polyneuropathy, unspecified (principal); I77.6 Arteritis, unspecified; Z29.8 Encounter for other specified prophylactic measures; Z79.899 Other long term (current) drug therapy

== ENCOUNTER → 2017-11-15 | Outpatient (CLI) | payer OTHER ==
[~2017-11-15] MED LIST changes: -OXYC-106 PO; +OXYC-594 PO
[2017-11-15 12:46] LABS: BASO % 0.2 %; BASO ABS # 0.02 K/uL (0-0.2); EOS % 1.1 %; HEMATOCRIT 44.3 % (42-52); HEMOGLOBIN 14.8 g/dL (14.0-18.0); IG# 0.02 K/uL (0.00-0.02); LYMPH % 8.4 %; MEAN CELL VOLUME 91.3 fL (80-100); MEAN CORPUSCULAR HEMOGLOBIN 30.5 pg (25-34); MEAN CORPUSCULAR HGB CONC 33.4 g/dl (32-36); MEAN PLATELET VOLUME 10.7 fL (7.4-10.4); MONO % 5.7 %; MONO ABS # 0.54 K/uL (0.11-0.59); NEUT % 84.4 %; NEUT ABS # 8.03 K/uL (1.4-6.5); PLATELET COUNT 210 K/uL (130-400); RED CELL DISTRIBUTION WIDTH CV 15.6 % (11.5-14.5); RED CELL DISTRIBUTION WIDTH SD 51.9 fL (36.4-46.3); WHITE BLOOD COUNT 9.51 K/uL (4.8-10.8)
[2017-11-15 13:00] LABS: CREATININE 0.87 mg/dl (0.60-1.40)
[2017-11-15 13:01] LABS: ALBUMIN 3.9 gm/dl (3.4-5.0); ALKALINE PHOSPHATASE 75 U/L (45-117); ALT/SGPT 31 U/L (12-78); AST/SGOT 17 U/L (15-37); TOTAL PROTEIN 7.1 gm/dl (6.4-8.2)
== END | disposition home or self-care (01) ==
LOC: C.LABMFLN 09:29
PROVIDERS: ATTEND Internal Medicine Rheumatology
DX: G62.9 Polyneuropathy, unspecified (principal); I77.6 Arteritis, unspecified; R76.8 Other specified abnormal immunological findings in serum; Z79.899 Other long term (current) drug therapy; M31.7 Microscopic polyangiitis